=== PATIENT | male | born 1960 | race American Indian/Alaskan Native ===

== ENCOUNTER 2018-12-18 14:27 | Emergency (ER) | payer OTHER ==
[2018-12-18] MEDS ORDERED: CATAPRES PO ONE ×2 (16:06→16:19)
[2018-12-18] MEDS ORDERED: IBUPROFEN PO ONE (16:06)
[2018-12-18] MEDS ORDERED: CATAPRES ONE (16:20)
[2018-12-18 16:21] VITALS: BP 166/106
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
== END 2018-12-18 17:40 | disposition home or self-care (01) ==
LOC: ED 14:27
DX: S39.012A Strain of muscle, fascia and tendon of lower back, initial encounter (principal); M54.5 Low back pain; F17.200 Nicotine dependence, unspecified, uncomplicated; V49.59XA Passenger injured in collision with other motor vehicles in traffic accident, initial encounter; Y93.89 Activity, other specified; Y92.89 Other specified places as the place of occurrence of the external cause; Y99.8 Other external cause status
CPT/HCPCS: 72040; 72100